=== PATIENT | male | born 1980 | race Asian ===

== ENCOUNTER → 2018-03-10 | Outpatient (CLI) | payer OTHER ==
[2018-03-10 09:31] LABS: microscopic required? NO
[2018-03-10 09:38] LABS: urine erythrocyte NEGATIVE (NEGATIVE)
[2018-03-10 10:02] LABS: BASOPHIL % 0.5 % (0-2); PLATELET COUNT 277 x10^3mcL (130-400); RED CELL DISTRIBUTION WIDTH 14.3 % (11.5-14.5)
[2018-03-10 10:15] LABS: ALBUMIN 4.6 g/dL (3.4-5.0); ALKALINE PHOSPHATASE 89 U/L (46-116); ALT/SGPT 30 U/L (16-63); AST/SGOT 19 U/L (15-37); BILIRUBIN TOTAL 0.81 mg/dL (0.20-1.00); CALCIUM 9.9 mg/dL (8.5-10.1); CARBON DIOXIDE 28.9 mmol/L (21-32); CHLORIDE SERUM 103 mmol/L (98-107); CREATININE SERUM 1.1 mg/dL (0.7-1.3); GFR1 > 60 mL/min; GLUCOSE SERUM 109 mg/dL (74-106); POTASSIUM SERUM 4.7 mmol/L (3.5-5.1); SODIUM SERUM 139 mmol/L (136-145)
[2018-03-10 10:18] LABS: TOTAL PROTEIN, SERUM 8.5 g/dL (6.4-8.2)
== END | disposition home or self-care (01) ==
LOC: MI 07:59
PROC: B030YZZ Magnetic Resonance Imaging (MRI) of Brain using Other Contrast (ICD-10-PCS; principal; 2018-03-10)
DX: R73.09 Other abnormal glucose (principal); E55.9 Vitamin D deficiency, unspecified
CPT/HCPCS: A9577

== ENCOUNTER → 2019-02-21 | Outpatient (CLI) | payer OTHER ==
[2019-02-21 08:12] LABS: BASOPHIL % 0.5 % (0-2); PLATELET COUNT 244 x10^3mcL (130-400); RED CELL DISTRIBUTION WIDTH 14.2 % (11.5-14.5)
[2019-02-21 08:37] LABS: ALBUMIN 4.5 g/dL (3.4-5.0); ALKALINE PHOSPHATASE 87 U/L (46-116); ALT/SGPT 20 U/L (16-63); AST/SGOT 19 U/L (15-37); BILIRUBIN DIRECT 0.14 mg/dL (0.0-0.2); BILIRUBIN TOTAL 0.59 mg/dL (0.20-1.00); CALCIUM 8.7 mg/dL (8.5-10.1); CARBON DIOXIDE 30.9 mmol/L (21-32); CHLORIDE SERUM 103 mmol/L (98-107); GFR1 > 60 mL/min; GLUCOSE SERUM 104 mg/dL (74-106); POTASSIUM SERUM 4.6 mmol/L (3.5-5.1); SODIUM SERUM 141 mmol/L (136-145); TOTAL PROTEIN, SERUM 7.9 g/dL (6.4-8.2)
== END | disposition home or self-care (01) ==
LOC: LB 07:29
PROVIDERS: Internal Medicine
DX: R10.9 Unspecified abdominal pain (principal)

== ENCOUNTER → 2019-06-21 | Outpatient (CLI) | payer OTHER | END | disposition home or self-care (01) | LOC: RD 17:32 | DX: Z77.22 Contact with and (suspected) exposure to environmental tobacco smoke (acute) (chronic) (principal) ==

== ENCOUNTER 2019-07-14 07:12 | Day surgery (SDC) | payer OTHER ==
[~2019-07-14] VITALS: Ht 172.7 cm; Wt 69.4 kg
[2019-07-14 07:36] VITALS: BP 141/88
[2019-07-14 10:25] VITALS: BP 104/78
== END 2019-07-14 10:30 | disposition home or self-care (01) ==
LOC: DS 07:12 → OR 09:00 → DS 10:30
DX: K21.0 Gastro-esophageal reflux disease with esophagitis (principal); K29.50 Unspecified chronic gastritis without bleeding; K31.89 Other diseases of stomach and duodenum; E78.5 Hyperlipidemia, unspecified; Z98.890 Other specified postprocedural states
CPT/HCPCS: 43235; J1200; J1610; J2250; J2310; J3010; J3490